=== PATIENT | female | born 1985 | race African-American/Black ===

== ENCOUNTER 2019-04-26 23:41 | Emergency (ER) | payer BC, MEDICAID ==
[~2019-04-26] VITALS: Ht 172.7 cm; Wt 87.0 kg
[2019-04-27 00:57] LABS: BASOPHILS % 0.8 % (0.0-2.0); EOSINOPHILS % 1.7 % (0.0-5.0); HEMATOCRIT. 36.2 % (36.0-48.0); HEMOGLOBIN. 12.7 g/dL (12.0-16.0); LYMPHOCYTES % 26.6 % (20.0-50.0); MEAN CORPUSCULAR VOLUME 88.5 fL (81.0-99.0); MEAN PLATELET VOLUME 7.7 fl (7.4-10.4); MONOCYTES % 6.1 % (2.0-8.0); NEUTROPHILS % 64.8 % (40.0-76.0); PLATELET 285 x1000/uL (130-400); RED BLOOD CELL COUNT 4.09 mill/uL (4.2-5.4); RED CELL DISTRIBUTION WIDTH 12.9 % (11.6-14.6)
[2019-04-27 01:04] LABS: CHLORIDE 106 mEq/L (98-107)
[2019-04-27 01:08] LABS: ETHANOL BLOOD < 10 mg/dL
[2019-04-27 02:56] LABS: CLARITY URINE CLEAR (CLEAR); COLOR URINE YELLOW (YELLOW); KETONES URINE NEGATIVE (NEGATIVE); LEUKOCYTE ESTERASE URINE NEGATIVE (NEGATIVE); NITRITE URINE NEGATIVE (NEGATIVE); OCCULT BLOOD URINE NEGATIVE (NEGATIVE); PROTEIN URINE NEGATIVE (NEGATIVE); SPECIFIC GRAVITY URINE 1.002 (1.005-1.030); UROBILINOGEN URINE 0.2 E.U./dL (0.2-1.0)
[2019-04-27 03:10] LABS: *AMPHETAMINES SCREEN URINE NEGATIVE (NEGATIVE); *BARBITURATES SCREEN URINE NEGATIVE (NEGATIVE); *BENZODIAZEPINES SCREEN URINE NEGATIVE (NEGATIVE)
[2019-04-27 03:11] LABS: *COCAINE SCREEN URINE NEGATIVE (NEGATIVE); CANNABINOID URINE SCREEN NEGATIVE (NEGATIVE); METHADONE URINE SCREEN NEGATIVE (NEGATIVE); OPIATES URINE SCREEN NEGATIVE (NEGATIVE); PHENCYCLIDINE URINE SCREEN NEGATIVE (NEGATIVE)
[2019-04-27 14:20] VITALS: BP 98/62
== END 2019-04-27 14:39 | disposition home or self-care (01) ==
LOC: ER 23:41
DX: T43.021A Poisoning by tetracyclic antidepressants, accidental (unintentional), initial encounter (principal); F31.9 Bipolar disorder, unspecified; F20.9 Schizophrenia, unspecified; Y92.89 Other specified places as the place of occurrence of the external cause
CPT/HCPCS: 36415; 80305; 80307; 80320; 80329; 81003; 81025; 83930; 93005; 99284; G0480

== ENCOUNTER 2023-09-14 14:43 | Emergency (ER) | payer BC, MEDICAID ==
[~2023-09-14] VITALS: Ht 172.7 cm; Wt 100.0 kg
[2023-09-14 14:48] VITALS: BP 140/86; PULSE 92; RESP 16; TEMP 97.6; O2SAT 99
== END 2023-09-14 16:39 | disposition left against medical advice (07) ==
LOC: ER 14:43
DX: F41.9 Anxiety disorder, unspecified (principal); F31.9 Bipolar disorder, unspecified; F20.9 Schizophrenia, unspecified; F90.8 Attention-deficit hyperactivity disorder, other type; Z76.0 Encounter for issue of repeat prescription
CPT/HCPCS: 99283